=== PATIENT | female | born 1990 | race Caucasian/White ===

== ENCOUNTER 2017-02-14 16:24 | Emergency (ER) | payer BC ==
[2017-02-14 17:34] VITALS: BP 128/74
--- NOTE | 2017-02-14 17:38 | UC ---
Throat Pain/Nasal Marcus HPI - HPI Summary HPI Summary: 26 YEAR OLD FEMALE PRESENTS WITH SORE THROAT, COUGH AND DIARRHEA. - History of Current Complaint Chief Complaint: UCGeneralIllness Stated Complaint: ST/DIZZY/NAUSEA Time Seen by Provider: 02/14/17 17:37 Hx Obtained From: Patient Hx Last Menstrual Period: 02/14/17 Onset/Duration: Sudden Onset Severity: Moderate Pain Scale Used: 0-10 Numeric - 5 Associated Signs & Symptoms: Positive: Sinus Discomfort, Nasal Discharge - Epiglottits Risk Factors Epiglottis Risk Factors: Negative - Allergies/Home Medications Allergies/Adverse Reactions: Allergies Allergy/AdvReac Type Severity Reaction Status Date / Time Mupirocin [From Bactroban] Allergy Rash Verified 02/14/17 17:29 Home Medications: Home Medications Sertraline* [Zoloft*] 50 mg PO BEDTIME 02/14/17 [History Confirmed 02/14/17] PMH/Surg Hx/FS Hx/Imm Hx Previously Healthy: Yes - Surgical History Surgical History: Yes Surgery Procedure, Year, and Place: ear tubes - Family History Known Family History: Positive: None - Social History Alcohol Use: Rare Substance Use Type: None Smoking Status (MU): Never Smoked Tobacco Have You Smoked in the Last Year: No - Immunization History Most Recent Influenza Vaccination: Not the Season Review of Systems Constitutional: Negative Skin: Negative Eyes: Negative ENT: Sore Throat, Nasal Discharge, Sinus Congestion, Sinus Pain/Tenderness Respiratory: Negative Cardiovascular: Negative Gastrointestinal: Negative Genitourinary: Negative Motor: Negative Neurovascular: Negative Musculoskeletal: Negative Neurological: Negative Psychological: Negative All Other Systems Reviewed And Are Negative: Yes Physical Exam Triage Information Reviewed: Yes Vital Signs: Initial Vital Signs Temp 37.6 C 02/14/17 17:29 Pulse 86 02/14/17 17:29 Resp 16 02/14/17 17:29 BP 128/74 02/14/17 17:29 Pulse Ox 97 02/14/17 17:29 Eye Exam: Normal ENT: Positive: Pharyngeal erythema, Nasal congestion, Nasal drainage Dental Exam: Normal Neck exam: Normal Neck: Positive: 1 Respiratory Exam: Normal Cardiovascular Exam: Normal Abdominal Exam: Normal Musculoskeletal Exam: Normal Neurological Exam: Normal Psychological Exam: Normal Skin Exam: Normal Throat Pain/Nasal Course/Dx - Differential Dx/Diagnosis Provider Diagnoses: SINUSITIS. FEVER. SORE THROAT Discharge - Discharge Plan Condition: Stable Disposition: HOME Prescriptions: Amoxicillin PO (*) [Amoxicillin 500 MG CAP*] 500 mg PO TID #30 cap LoraTADine TAB(NF) [Claritin 10 MG TAB(NF)] 10 mg PO DAILY #30 tab Magic M W2 Nehemias/Maal/Nyst/Lido* 5 ml SWISH SPIT QID #120 ml guaiFENesin/CODIEN 100MG-10MG* [Robitussin AC 100Mg-10Mg*] 5 ml PO Q6H PRN #120 udc MDD 20 ML PRN Reason: Cough Patient Education Materials: Pharyngitis (ED), Allergic Rhinitis (ED) Referrals: Denise Santiago MD [Medical Doctor] - If Needed
== END 2017-02-14 18:01 | disposition home or self-care (01) ==
LOC: UCCORT 16:24
DX: J32.9 Chronic sinusitis, unspecified (principal); R50.9 Fever, unspecified; J02.9 Acute pharyngitis, unspecified
CPT/HCPCS: 87651; 99212; G0463

== ENCOUNTER 2019-04-22 10:17 | Emergency (ER) | payer OTHER ==
[2019-04-22 12:58] VITALS: BP 141/81
--- NOTE | 2019-04-22 13:09 | UC ---
Respiratory Complaint HPI - HPI Summary HPI Summary: 29-year-old female presents with 3 day history of dry nonproductive cough, chest tightness, and occasional wheezing. States she has a history of some reactive airway disease with allergies and upper respiratory infections. Reports she has also been having nasal congestion, runny nose, and some postnasal drip. Has been using her albuterol inhaler however she noted that it in January and suspects that it may not be effective. Denies fever, chills, ear pain, sore throat, or chest pain. - History of Current Complaint Chief Complaint: UCRespiratory Stated Complaint: ASTHMA Time Seen by Provider: 04/22/19 12:52 Hx Obtained From: Patient Hx Last Menstrual Period: 04/21/19 Pain Intensity: 0 - Allergies/Home Medications Allergies/Adverse Reactions: Allergies Allergy/AdvReac Type Severity Reaction Status Date / Time mupirocin [From Bactroban] Allergy Rash Verified 04/22/19 12:59 PMH/Surg Hx/FS Hx/Imm Hx Respiratory History: Other - RAD - Surgical History Surgical History: Yes Surgery Procedure, Year, and Place: ear tubes - Family History Known Family History: Positive: Non-Contributory - Social History Occupation: Employed Full-time Lives: With Family Alcohol Use: Rare Substance Use Type: None Smoking Status (MU): Never Smoked Tobacco Have You Smoked in the Last Year: No - Immunization History Most Recent Influenza Vaccination: Not the 2015/2016 Season Review of Systems All Other Systems Reviewed And Are Negative: Yes Constitutional: Negative: Fever, Chills Skin: Negative: Rash Eyes: Negative: Drainage, Eye Redness ENT: Positive: Nasal Discharge, Sinus Congestion. Negative: Sore Throat, Ear Ache, Sinus Pain/Tenderness Respiratory: Positive: Shortness Of Breath, Cough, Other - Wheezing Cardiovascular: Negative: Chest Pain Gastrointestinal: Positive: Negative Genitourinary: Positive: Negative Musculoskeletal: Positive: Negative Neurological: Positive: Negative Is Patient Immunocompromised?: No Physical Exam - Summary Physical Exam Summary: GENERAL APPEARANCE: Well developed, well nourished, alert and cooperative, and appears to be in no acute distress. EYES: Conjunctiva clear. No drainage. EARS: External auditory canals and tympanic membranes clear, hearing grossly intact. NOSE: Moderate nasal congestion. No nasal discharge. THROAT: Mild pharyngeal erythema with post-nasal drip. No tonsilar inflammation , swelling, exudate, or lesions. Uvula midline. NECK: Neck supple, non-tender without lymphadenopathy. CARDIAC: Normal S1 and S2. No S3, S4 or murmurs. Rhythm is regular. There is no peripheral edema, cyanosis or pallor. Extremities are warm and well perfused. Capillary refill is less than 2 seconds. Peripheral pulses intact. LUNGS: Clear to auscultation without rales, rhonchi, wheezing or diminished breath sounds. Dry, non-productive cough. ABDOMEN: Positive bowel sounds. Soft, nondistended, nontender. No guarding or rebound. No masses or hepatosplenomegally. MUSKULOSKELETAL: ROM intact to all extremities. No joint erythema or tenderness. Normal muscular development. Normal gait. SKIN: Skin normal color, texture and turgor with no lesions or eruptions. Triage Information Reviewed: Yes Vital Signs: Initial Vital Signs Temp 99.7 F 04/22/19 12:53 Pulse 79 04/22/19 12:53 Resp 16 04/22/19 12:53 BP 141/81 04/22/19 12:53 Pulse Ox 99 04/22/19 12:53 Vital Signs Reviewed: Yes Respiratory Course/Dx - Course Course Of Treatment: 29-year-old female presents with 3 day history of dry nonproductive cough, chest tightness, and occasional wheezing. States she has a history of some reactive airway disease with allergies and upper respiratory infections. Reports she has also been having nasal congestion, runny nose, and some postnasal drip. Has been using her albuterol inhaler however she noted that it in January and suspects that it may not be effective. Denies fever, chills, ear pain, sore throat, or chest pain. Afebrile. Hypertensive otherwise vital signs stable. Patient had moderate nasal congestion, mild pharyngeal erythema with postnasal drip, no tonsillar swelling or exudate, no cervical lymphadenopathy, clear bilateral breath sounds, dry nonproductive cough , and otherwise unremarkable exam. Discussed with patient that her symptoms are likely from a viral upper respiratory infection and am recommending symptomatic treatment at this time. I will provide her with a new albuterol inhaler to use for any shortness of breath or wheezing. She is to follow-up with her primary care provider in 5-7 days if symptoms do not improve. Anticipatory guidance and warning symptoms were reviewed with the patient. Verbalizes understanding and agrees with plan of care. - Differential Dx/Diagnosis Differential Diagnosis/HQI/PQRI: Asthma, Bronchitis, Lower Resp Infection, Other - skin tear, abrasion, cellulitis Provider Diagnosis: Viral URI with cough, Abrasion of dorsum of foot Discharge ED - Sign-Out/Discharge Documenting (check all that apply): Patient Departure All imaging exams completed and their final reports reviewed: No Studies - Discharge Plan Condition: Stable Disposition: HOME Prescriptions: Albuterol HFA INHALER* [Ventolin HFA Inhaler*] 2 puff INH Q4H PRN #1 mdi PRN Reason: Sob/Wheezing Benzonatate CAP* [Tessalon 100 MG CAP*] 100 mg PO TID PRN #21 cap PRN Reason: Cough Patient Education Materials: Upper Respiratory Infection (ED), Abrasion (ED) Referrals: Myriam Read NP [Primary Care Provider] - 5 Days (If no improvement) Additional Instructions: Your history and exam are consistent with a viral upper respiratory infection with cough. Viral infections do not respond to antibiotics and are limited to the treatment of symptoms. Viral infections typically run their course in 7-10 days. Get plenty of rest. Drink plenty of fluids. Use a saline rinse kit such as Neti Pot or NeilMed at least twice a day to help thin secretions and promote drainage of the sinuses. Use an over the counter decongestant such as Sudafed according to directions to help with nasal congestion. Use your albuterol inhaler 2 puffs every 4-6 hours as needed for shortness of breath or wheezing. Take Tessalon Perles 1 cap every 8 hours as needed for cough. Take over the counter acetaminophen (Tylenol) or ibuprofen (Advil, Motrin) according to directions as needed for pain or fever. The abrasion on the top of your foot does not appear to be infected. Continue to keep the wound clean with a mild soap and water. Apply an antibiotic ointment and cover with a bandage. Watch for signs of infection including fever greater than 100.5 F, severe pain not managed with pain medication, redness that spreads, swelling of the hand/ fingers, or pus draining from the wound. Seek immediate medical attention should any of these occur. Follow up with your primary care provider in 5-7 days if symptoms persist. Seek immediate medical attention in the emergency room if you have fever greater than 100.5 F despite taking acetaminophen or ibuprofen, have chest pain , difficulty breathing, are unable to swallow, or have any worsening of symptoms. - Billing Disposition and Condition Condition: STABLE Disposition: Home
== END 2019-04-22 13:34 | disposition home or self-care (01) ==
LOC: UCCORT 10:17
DX: J06.9 Acute upper respiratory infection, unspecified (principal); S90.819A Abrasion, unspecified foot, initial encounter; J45.909 Unspecified asthma, uncomplicated; R05 Cough; Z88.1 Allergy status to other antibiotic agents; X58.XXXA Exposure to other specified factors, initial encounter; Y92.9 Unspecified place or not applicable
CPT/HCPCS: 99212; G0463

== ENCOUNTER 2019-05-14 10:12 | Emergency (ER) | payer OTHER ==
[2019-05-14 11:01] VITALS: BP 156/77
--- NOTE | 2019-05-14 11:05 | UC ---
Throat Pain/Nasal Marcus HPI - HPI Summary HPI Summary: Patient is a 29yo female presenting with her mother in law for sore throat, body aches, and fatigue since yesterday. Patient states symptoms began yesterday afternoon with extreme body aches that have slowly improved today. States throat feels raw and it is painful to swallow. States pain radiates to ears when she swallows. Denies congestion. Denies cough. Denies SOB and wheezing. Notes chills and subjective fever. Denies ill contacts. - History of Current Complaint Chief Complaint: UCRespiratory Stated Complaint: BODYACHES FEVER SORE THROAT Hx Obtained From: Patient, Family/Junior Accountant - mother in law Hx Last Menstrual Period: 04/15/19 Onset/Duration: Sudden Onset Severity: Moderate Pain Intensity: 7 Pain Scale Used: 0-10 Numeric - Allergies/Home Medications Allergies/Adverse Reactions: Allergies Allergy/AdvReac Type Severity Reaction Status Date / Time mupirocin [From Bactroban] Allergy Rash Verified 05/14/19 10:56 Home Medications: Home Medications D-Methorphan/PE/Acetaminophen [Daytime Cold Multi-Symp Gelcap] 2 each PO ONCE PRN 05/14/19 [History Confirmed 05/14/19] PMH/Surg Hx/FS Hx/Imm Hx Previously Healthy: Yes - Surgical History Surgical History: Yes Surgery Procedure, Year, and Place: ear tubes - Family History Known Family History: Positive: Unknown, Non-Contributory - Social History Occupation: Employed Full-time Lives: With Family Alcohol Use: Rare Substance Use Type: None Smoking Status (MU): Never Smoked Tobacco Have You Smoked in the Last Year: No - Immunization History Most Recent Influenza Vaccination: Not the Season Review of Systems All Other Systems Reviewed And Are Negative: Yes Constitutional: Positive: Fever, Chills, Fatigue ENT: Positive: Sore Throat, Ear Ache. Negative: Nasal Discharge, Sinus Congestion Respiratory: Positive: Negative. Negative: Shortness Of Breath, Cough Cardiovascular: Positive: Negative Gastrointestinal: Positive: Negative Musculoskeletal: Positive: Myalgia Neurological: Positive: Headache Psychological: Positive: Anxious Physical Exam Triage Information Reviewed: Yes Appearance: Well-Appearing, No Pain Distress, Well-Nourished Vital Signs: Initial Vital Signs Temp 98.9 F 05/14/19 10:58 Pulse 123 05/14/19 10:58 Resp 20 05/14/19 10:58 BP 156/77 05/14/19 10:58 Pulse Ox 97 05/14/19 10:58 Lab Results 05/14/19 Range/Units 11:20 Group A Strep Rapid Negative (Negative) Vital Signs Reviewed: Yes Eyes: Positive: Conjunctiva Clear ENT: Positive: Hearing grossly normal, Pharyngeal erythema, TMs normal, Tonsillar swelling - b/l, Tonsillar exudate - LEFT, Uvula midline. Negative: Nasal congestion, Nasal drainage, Trismus, Muffled voice, Hoarse voice Neck exam: Normal Neck: Positive: Supple, Nontender, No Lymphadenopathy Respiratory Exam: Normal Respiratory: Positive: Lungs clear, Normal breath sounds, No respiratory distress Cardiovascular Exam: Other - regular rhythm Cardiovascular: Positive: Tachycardia Neurological: Positive: Alert Psychological: Positive: Age Appropriate Behavior Skin Exam: Normal Throat Pain/Nasal Course/Dx - Course Course Of Treatment: I discussed possible bacterial source of symptoms based on PE findings and despite negative rapid strep test with the patient. I am treating with amoxicillin and throat culture was sent. Informed her that she will be notified with any changes needing to be made based on results. Patient voiced understanding and agreed with treatment plan. Discussed elevated bp with patient today. She states high bp and HR d/t white coat hypertension and states getting swabbed makes her anxious. - Differential Dx/Diagnosis Provider Diagnosis: White coat syndrome with high blood pressure without hypertension, Exudative pharyngitis Discharge ED - Sign-Out/Discharge Documenting (check all that apply): Patient Departure All imaging exams completed and their final reports reviewed: No Studies - Discharge Plan Condition: Stable Disposition: HOME Prescriptions: Amoxicillin PO (*) [Amoxicillin 500 MG CAP*] 500 mg PO Q12H #20 cap Patient Education Materials: Pharyngitis (ED) Forms: *Work Release Referrals: Myriam Read NP [Primary Care Provider] - If Needed Additional Instructions: You tested negative for strep throat today, but your symptoms may still be caused by a bacterial source. A throat culture has been sent and you will be notified with any changes in treatment that need to be made based on the results. Take amoxicillin as prescribed for the treatment of bacterial infection. You may take ibuprofen and/or tylenol as directed for fever and pain relief. You may use over the counter throat sprays or lozenges for symptomatic relief. Get plenty of rest and fluids. Follow up with your PCP if symptoms worsen or do not resolve in 10 days. - Billing Disposition and Condition Condition: STABLE Disposition: Home
== END 2019-05-14 11:52 | disposition home or self-care (01) ==
LOC: UCCORT 10:12
DX: J02.9 Acute pharyngitis, unspecified (principal); R03.0 Elevated blood-pressure reading, without diagnosis of hypertension; H92.03 Otalgia, bilateral; R53.83 Other fatigue; Z88.1 Allergy status to other antibiotic agents
CPT/HCPCS: 87070; 87077; 87651; 99212; G0463